=== PATIENT | female | born 1965 | race Caucasian/White ===

== ENCOUNTER 2023-10-13 06:30 | Day surgery (SDC) | payer BC ==
[~2023-10-13 06:30] MED LIST: Morphine 8 MG, EPINEPHrine 0.3 MG, Cefuroxime 750 MG, Ketorolac 30 MG, Sodium Chloride ... PRN; Propofol 200 MG/20 ML SDV ONE; Sodium Chloride 0.9% 10 ML Syringe FLUSH PRN; Sodium Chloride 0.9% 10 ML Syringe FLUSH SCH; fentaNYL 100 MCG/2 ML SDV ONE
[2023-10-13] MEDS ORDERED: Midazolam 1 MG/ML 2 ML SDV ONE (06:31)
[2023-10-13] MEDS ORDERED: ceFAZolin 2 GM Vial ONE (06:32)
[2023-10-13] MEDS ORDERED: dexmedeTOMIDine HCl 200 MCG/2 ML SDV ONE (06:35)
[2023-10-13] MEDS ORDERED: Dexamethasone 4 MG/ML 5 ML MDV ONE (06:35)
[2023-10-13] MEDS ORDERED: Ropivacaine 0.5% 5 MG/ML 30 ML SDV ONE (06:37)
[2023-10-13] MEDS ORDERED: EPINEPHrine 1 MG/ML SDV ONE (06:37)
[2023-10-13] MEDS: Lactated Ringers 1,000 ML IV SCH (06:45)
[2023-10-13] MEDS: Pregabalin 25 MG Cap PO ONE (07:01)
[2023-10-13] MEDS: oxyCODONE ER 10 MG TAB.ER PO ONE (07:01)
[2023-10-13] MEDS: Acetaminophen 325 MG Tab PO ONE (07:01)
[2023-10-13] MEDS ORDERED: ePHEDrine 50 MG/ML SDV ONE (08:22)
[2023-10-13] MEDS ORDERED: Lactated Ringers 1,000 ML ONE (08:58)
[2023-10-13] MEDS ORDERED: Propofol 200 MG/20 ML SDV ONE (08:59)
[2023-10-13] MEDS: Tranexamic Acid 1,000 MG/10 ML Vial ONE (09:00)
[2023-10-13] MEDS: Vancomycin 1 GM SDV ONE (09:01)
[2023-10-13] MEDS: Morphine 8 MG, EPINEPHrine 0.3 MG, Cefuroxime 750 MG, Ketorolac 30 MG, Sodium Chloride ... PRN (09:01)
[2023-10-13] MEDS ORDERED: Ondansetron 4 MG/2 ML SDV IVPUSH SCH (10:04)
[2023-10-13] MEDS ORDERED: oxyCODONE 5 MG Tab PO PRN (11:00)
== END 2023-10-13 11:55 | disposition home or self-care (01) ==
LOC: JD.SDS 06:30
PROVIDERS: ATTEND Orthopaedic Surgery
DX: M17.11 Unilateral primary osteoarthritis, right knee (principal); K21.9 Gastro-esophageal reflux disease without esophagitis; F32.A Depression, unspecified; Z79.899 Other long term (current) drug therapy
CPT/HCPCS: 0055T; 27447; 64447; 73560; 97110; 97161; A9270; C1713; C1776; J0171; J0690; J0697; J1100; J1885; J2250; J2270; J2704; J2795; J3010; J3370; J7030; J7120; 01402; J3490

== ENCOUNTER 2025-04-21 09:03 | Emergency (ER) | payer BC ==
[2025-04-21] MEDS ORDERED: Naloxone 0.4 MG/ML SDV IVPUSH PRN (09:19)
[2025-04-21] MEDS: fentaNYL 100 MCG/2 ML SDV IM STA (09:29)
[2025-04-21] MEDS: Ondansetron 4 MG Tab.DIS PO ONE (09:33)
[2025-04-21] MEDS: Acetaminophen/oxyCODONE 325-5 MG Tab PO ONE (09:34)
[2025-04-21] MEDS: cefTRIAXone 1 GM, Lidocaine 1% 2.1 ML IM ONE (11:00)
[2025-04-21] MEDS: Lidocaine 1% with EPINEPHrine 1:100,000 20 ML MDV INJECT ONE ×2 (11:01→11:02)
== END 2025-04-21 12:13 | disposition home or self-care (01) ==
LOC: JD.ED 09:03
DX: S97.82XA Crushing injury of left foot, initial encounter (principal); S92.322A Displaced fracture of second metatarsal bone, left foot, initial encounter for closed fracture; S92.332A Displaced fracture of third metatarsal bone, left foot, initial encounter for closed fracture; S92.342A Displaced fracture of fourth metatarsal bone, left foot, initial encounter for closed fracture; K21.9 Gastro-esophageal reflux disease without esophagitis; Z79.899 Other long term (current) drug therapy; Z90.710 Acquired absence of both cervix and uterus; X58.XXXA Exposure to other specified factors, initial encounter
CPT/HCPCS: 12004; 73600; 73630; 96372; 99283; A9270; J0696; J2003; J2004; J3010